=== PATIENT | male | born 1990 | race American Indian/Alaskan Native ===

== ENCOUNTER 2021-02-09 05:13 | Emergency (ER) | payer SELFPAY ==
[2021-02-09] MEDS ORDERED: ONDANSETRON 4 MG/2 ML INJ IV ONE (05:54)
[2021-02-09] MEDS ORDERED: DICYCLOMINE 20 MG/2 ML INJ IM ONE ×2 (05:54→06:07)
[2021-02-09] MEDS ORDERED: ONDANSETRON 4 MG/2 ML INJ ONE (06:07)
[2021-02-09 06:10] LABS: Basophils % (Auto) 0.2 % (0.0-1.8); Eosinophils % (Auto) 0.2 % (0.0-4.3); Hematocrit 37.9 % (35.5-45.6); Hemoglobin 12.8 gm/dl (11.8-15.2); Lymphocytes # (Auto) 1.6 K/mm3 (1.2-5.4); Lymphocytes % (Auto) 15.7 % (13.4-35.0); Mean Corpuscular HGB Conc 34 % (32-34); Mean Corpuscular Volume 86 fl (84-94); Monocytes # (Auto) 0.7 K/mm3 (0.0-0.8); Monocytes % (Auto) 7.4 % (0.0-7.3); Platelet Count 225 K/mm3 (140-440); Red Blood Count 4.39 M/mm3 (3.65-5.03); Red Cell Distribution Width 13.4 % (13.2-15.2)
[2021-02-09 06:30] LABS: Bilirubin,Urine NEG (Negative); Color,Urine Straw (Yellow)
[2021-02-09 06:31] LABS: Blood,Urine NEG (Negative); Protein,Urine <15 mg/dL mg/dL (Negative); Urobilinogen,Urine < 2.0 mg/dL (<2.0)
[2021-02-09 06:39] LABS: Alanine Aminotransferase 22 units/L (7-56); Albumin 4.5 g/dL (3.9-5); BUN/Creatinine Ratio 11; Blood Urea Nitrogen 11 mg/dL (9-20); Hemolysis Index 3
[2021-02-09] MEDS ORDERED: MORPHINE 2 MG/1 ML INJ IV ONE (07:29)
[2021-02-09] MEDS ORDERED: SODIUM CHLORIDE 0.9% 1000 ML 1,000 ML IV ONE (07:30)
[2021-02-09] MEDS ORDERED: SODIUM CHLORIDE 0.9% 1000 ML 1,000 ML ONE (07:31)
[2021-02-09] MEDS ORDERED: MORPHINE 2 MG/1 ML INJ ONE (07:31)
--- NOTE | 2021-02-09 07:48 | Emergency Department Report ---
ED Abdominal Pain HPI - General Chief Complaint: Abdominal Pain Stated Complaint: STOMACH PAIN Time Seen by Provider: 02/09/21 07:16 Source: patient Mode of arrival: Ambulatory Limitations: No Limitations - History of Present Illness Initial Comments: This is a 30-year-old male complaining of abdominal pain started 2 weeks ago. He describes the pain as if someone punched him in the stomach. The pain is associated with nausea, no vomiting no diarrhea, no urinary symptoms no fever no chills. Patient states approximately 1 year ago he was admitted to the hospital @ [facility]SH with pancreatitis and has not had any flareups. He admits to drinking alcohol 1-2 times a week 4-5 shots of tequila/patrom. His current pain level is 7/10. He denies any other past medical history. Patient is in no acute distress. MD Complaint: abdominal pain -: week(s) (2) Location: LLQ Radiation: none Migration to: no migration Severity scale (0 -10): 7 Quality: other (like a punch) Consistency: constant Improves With: nothing Worsens With: nothing Associated Symptoms: nausea. denies: vomiting, diarrhea, fever, chills, constipation, hematemesis, hematochezia - Related Data Previous Rx's Medication Instructions Recorded Last Taken Type Acetaminophen [Tylenol] 650 mg PO Q6H PRN #30 capsule 02/09/21 Unknown Rx Metoclopramide [Reglan] 10 mg PO TID #15 tab 02/09/21 Unknown Rx Ondansetron [Zofran Odt] 4 mg PO Q8HR #12 tab.rapdis 02/09/21 Unknown Rx Allergies Allergy/AdvReac Type Severity Reaction Status Date / Time No Known Allergies Allergy Unverified 02/09/21 06:12 ED Review of Systems ROS: Stated complaint: STOMACH PAIN Other details as noted in HPI Comment: All other systems reviewed and negative Constitutional: denies: chills, fever, weakness Eyes: as per HPI ENT: denies: ear pain, throat pain, dental pain, hearing loss, epistaxis Respiratory: no symptoms reported Cardiovascular: denies: chest pain, palpitations, dyspnea on exertion, edema, syncope, paroxysmal nocturnal dyspnea Endocrine: no symptoms reported Gastrointestinal: abdominal pain Genitourinary: denies: dysuria, frequency, hematuria, discharge Neurological: denies: headache, numbness Psychiatric: denies: anxiety, depression, auditory hallucinations, visual hallucinations, homicidal thoughts Hematological/Lymphatic: as per HPI ED Past Medical Hx - Past Medical History Previous Medical History?: No - Surgical History Past Surgical History?: No - Social History Smoking Status: Never Smoker Substance Use Type: None - Medications Home Medications: Home Medications Medication Instructions Recorded Confirmed Last Taken Type Acetaminophen [Tylenol] 650 mg PO Q6H PRN #30 capsule 02/09/21 Unknown Rx Metoclopramide [Reglan] 10 mg PO TID #15 tab 02/09/21 Unknown Rx Ondansetron [Zofran Odt] 4 mg PO Q8HR #12 tab.rapdis 02/09/21 Unknown Rx ED Physical Exam - General Limitations: No Limitations General appearance: alert, in no apparent distress - Head Head exam: Present: atraumatic - Eye Eye exam: Present: normal appearance. Absent: scleral icterus - ENT ENT exam: Present: normal exam - Neck Neck exam: Present: normal inspection, full ROM - Respiratory Respiratory exam: Present: normal lung sounds bilaterally - Cardiovascular Cardiovascular Exam: Present: regular rate, normal heart sounds - GI/Abdominal GI/Abdominal exam: Present: soft, hyperactive bowel sounds - Rectal Rectal exam: Present: deferred - exam: Present: normal inspection. Absent: testicular tenderness, scrotal swelling - Extremities Exam Extremities exam: Present: normal inspection - Back Exam Back exam: Present: normal inspection - Neurological Exam Neurological exam: Present: alert, oriented X3 - Psychiatric Psychiatric exam: Present: normal affect - Skin Skin exam: Present: warm, dry, intact, normal color ED Course Vital Signs 02/09/21 02/09/21 05:17 07:52 Temperature 97.8 F 97.6 F Pulse Rate 74 54 L Respiratory 18 16 Rate Blood Pressure 139/87 Blood Pressure 120/76 [Right] O2 Sat by Pulse 99 100 Oximetry - Reevaluation(s) Reevaluation #1: 02/09/21 08:36 Patient reports feeling much better his pain level is a 1/10 at this time. Findings of CAT scan discussed with patient. Patient aware that this may be early and mild pancreatitis. I also brought to his attention of the moderate cardiomegaly noted as incidental finding which he can follow-up with his primary care doctor 02/09/21 08:40 ED Medical Decision Making - Lab Data Result diagrams: 02/09/21 05:53 02/09/21 05:53 - Radiology Data Radiology results: report reviewed CT of the abdomen Impression Mild to hypodense and heterogenous appearance of the pancreas is nonspecific but can be seen in the clinical setting of pancreatitis. No significant inflammation. Otherwise no inflammatory process or bowel obstruction. Cardiomegaly. - Medical Decision Making 30-year-old male presents to the emergency room with complaint of abdominal pain x2 weeks. He drinks alcohol moderately and had a history of pancreatitis diagnosed 1 year ago. His complaint was specifically more to the left lower region. He had no signs of testicular torsion he had no swelling no tenderness to the testicular region. Lipase was elevated at 118. No abnormal electrolytes or elevated white count. CAT scan of the abdomen revealed mild hypodense and heterogenous appearance of the pancreas which could be nonspecific but is seen in the setting of pancreatitis. Patient pain level is down to 1/10 he is well-appearing in no distress . all findings discussed and chart reviewed with Dr. Hurst. 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 Critical Care Time: No Critical care attestation.: If time is entered above; I have spent that time in minutes in the direct care of this critically ill patient, excluding procedure time. ED Disposition Clinical Impression: Pancreatitis Qualifiers: Chronicity: chronic Pancreatitis type: alcohol induced Qualified Code(s): K86.0 - Alcohol-induced chronic pancreatitis Disposition: DC-01 TO HOME OR SELFCARE Is pt being admited?: No Does the pt Need Aspirin: No Instructions: Pancreatitis Eating Plan, Chronic Pancreatitis Additional Instructions: Follow-up with your primary care doctor or the physicians I referred you to in 3 to 5 days. Return to the emergency room for any worsening symptoms such as inability to keep food down or worsening pain fever or increased vomiting. Take all medications as prescribed. Stop drinking alcohol. Prescriptions: Metoclopramide [Reglan] 10 mg PO TID #15 tab Acetaminophen [Tylenol] 650 mg PO Q6H PRN #30 capsule PRN Reason: Pain , Severe (7-10) Ondansetron [Zofran Odt] 4 mg PO Q8HR #12 tab.rapdis Referrals: GUILHERME MAGALLON MD [Primary Care Provider] - 3-5 Days AMARA TAMEZ MD [Staff Physician] - 3-5 Days GIL KENYON MD [Staff Physician] - 3-5 Days Time of Disposition: 08:59
--- NOTE | 2021-02-09 08:09 | Cat Scan Report ---
CT ABDOMEN AND PELVIS WITH CONTRAST INDICATION / CLINICAL INFORMATION: Left lower quadrant abdominal pain x2 weeks. TECHNIQUE: Axial CT images were obtained through the abdomen and pelvis after 100 mL Omnipaque [address] scans at this location are performed using CT dose reduction for ALARA by means of automated exposure control. COMPARISON: None available. FINDINGS: LOWER CHEST: Heart is moderately enlarged. Lung bases are clear. LIVER: No significant abnormality. GALLBLADDER: No significant abnormality. BILE DUCTS: No significant abnormality. PANCREAS: Mildly hypodense and heterogeneous without definite peripancreatic inflammation. SPLEEN: No significant abnormality. ADRENALS: No significant abnormality. RIGHT KIDNEY / URETER: No significant abnormality. LEFT KIDNEY / URETER: No significant abnormality. STOMACH / SMALL BOWEL: No significant abnormality. COLON: No significant abnormality. APPENDIX: No significant abnormality. PERITONEUM: No free fluid. No free air. No fluid collection. LYMPH NODES: No significant adenopathy. AORTA / ARTERIES: No significant abnormality. IVC / VEINS: No significant abnormality. URINARY BLADDER: No significant abnormality. REPRODUCTIVE ORGANS: No significant abnormality. ADDITIONAL FINDINGS: None. SKELETAL SYSTEM: No significant abnormality. IMPRESSION: 1. Mild hypodense and heterogeneous appearance of the pancreas is nonspecific but can be seen in the clinical setting of pancreatitis. No significant inflammation. Laboratory correlation is recommended. 2. Otherwise, no inflammatory process or bowel obstruction. 3. Cardiomegaly. Signer Name: Mike Padron MD Signed: 02/09/2021 8:05 AM Workstation Name: [id number]
[2021-02-09 09:13] VITALS: BP 111/68
== END 2021-02-09 09:13 | disposition home or self-care (01) ==
LOC: ED 05:13
DX: K86.0 Alcohol-induced chronic pancreatitis (principal); Z79.899 Other long term (current) drug therapy
CPT/HCPCS: 36415; 74177; 80053; 81001; 83690; 85025; 87086; 96361; 96372; 96374; 96375; 99284; J0500; J2270; J2405; J7030; Q9967